=== PATIENT | male | born 1945 | race Caucasian/White ===

== ENCOUNTER 2016-12-08 08:30 | Day surgery (SDC) | payer MEDICARE, OTHER ==
[~2016-12-08] VITALS: Ht 185.4 cm; Wt 93.3 kg
--- NOTE | 2016-12-08 07:54 | PCM.HPANE ---
Patient Data Surgeon Admitting Provider: Attending Provider:Ilda Leiva MD Primary Care Physician:Ilir Campbell MD Other Provider:Tere Nunezingham Anesthesia Reason for Visit Left Ureteral Stone Ht/WT & BMI Height (Feet): 6 Height (Inches): 1 Weight (Kilograms): 93.07 Body Mass Index 27.00 Allergies Coded Allergies: lisinopril (Verified Allergy, Unknown, 12/05/16) Past Anesthesia History Anesthesia History: Denies:: Abnormal Airway, Anesthesia Reactions, Difficult Intubation, Malignant Hyperthermia Diabetes History Hx Diabetes?: Yes Type of Diabetes: Type II Glycemic Control: Oral Medication MRSA MRSA: No Medications Blood Thinner: Aspirin Hypertension Medication: Yes Home Meds Incl Beta Mindi: Yes Reported Medications Acetaminophen 325 Mg [id number] Mg PO Q4H PRN For Fever Ref 0 11/10/16 Krill Oil 500 Mg Gdphxsv429 Mg PO DAILY 11/10/16 Sertraline HCl (Zoloft)50 Mg Knjfyd031 Mg PO DAILY 30 Days Ref 0 11/09/16 Finasteride (Proscar)5 Mg Tablet5 Mg PO DAILY 30 Days 11/09/16 Nystatin/Triamcin (Nystatin-Triamcinolone Cream)15 Gm Cream..g.15 Gm TP BID 11/09/16 Metformin 500 Mg [id number] Mg PO BID Ref 0 11/09/16 Atorvastatin (Lipitor)40 Mg Beyynz10 Mg PO DAILY Ref 0 11/09/16 Sitagliptin/Metformin 50-500 mg (Janumet 50-500 mg)1 Each Tablet1 Tablet PO DAILY 11/09/16 Hydrochlorothiazide 25 Mg Wxresa41 Mg PO DAILY 30 Days Ref 0 11/09/16 Tamsulosin (Flomax)0.4 Mg Capsule0.4 Mg PO DAILY Ref 0 11/09/16 Butalbital/Aspirin/Caff 50-325-40 mg (Fiorinal 50-325-40 mg)1 Each Capsule1 Capsule PO Q4H PRN For Headache Ref 0 11/09/16 Felodipine ER 10 Mg Tab.er.24h10 Mg PO DAILY Ref 0 11/09/16 Losartan Potassium (Cozaar)100 Mg Ymzpcm54 Mg PO DAILY 11/09/16 Cinnamon Bark (Cinnamon)500 Mg Capsule1,000 Mg PO DAILY 11/09/16 Aspirin 81 Mg Vphfyf01 Mg PO BID Ref 0 11/09/16 History History of ENT Problems?: No HEENT History: Denies:: Abnormal Airway Difficult Intubation Hx of Heart Problems?: Yes Cardiovascular History: Positive for:: Hypertension Denies:: AICD Atrial Fibrillation Chest Pain Heart Murmur Irregular Heartbeat Pacemaker Hx of Respiratory Problem?: No Respiratory History: Denies:: Dyspnea (HX OF ASBESTOS EXPOSURE) Oxygen Administration Pneumonia Tuberculosis Use of C-PAP Machine Use of Inhalers / NEBS Hx Neurologic Problems?: Yes Neurological History: Positive for:: Headaches Denies:: CVA Dementia Multiple Sclerosis Parkinson's Disease Seizures Hx of GI Problems?: Yes Gastrointestinal History: Positive for:: Gastroesphageal Reflux Heartburn Denies:: Rectal Bleeding Hx of Problems?: Yes Genitourinary History: Positive for:: Kidney Stones (left stone current admission problem) Other Pertinent History: past hx of stones- recently seen here 10/2016 for left stone Male Hx: Denies:: Prostate Problems Scrotal Mass Testicular Surgery Skin History: Positive for:: History 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) Denies:: Pressure Ulcers Hx Musculoskeletal Problems?: No Musculoskeletal History: Denies:: Fibromyalgia Joint Replacement Musculoskeletal Trauma Myasthenia Gravis Osteoarthritis Hx of Psycho/Social Problems?: No Hx Surgeries?: Yes (ESWL, lithotripsy) Hx Any Other Health Problems?: Yes Other History: Denies:: Cancer Endocrine Disease Hospitalization Thyroid Disease History Blood Transfusions: Denies:: Blood Transfusions Hx Diabetes: Yes Smoking Status: Never Smoker Have You Smoked inLast 12 mo: No Stop/Bang S-Snoring: Do You Snore Loudly: Yes T-Tired: feel tired, fatigued: Yes O-Obsered: Observed not breath: No P-Blood Pressure: treated: Yes B- Body Mass Index > 35 kg/m2: No A- Age over 50: Yes N- Neck Large Circumference: No G- Gender Male: Yes COLIN Total Score: 5 COLIN Risk Assessment: High Risk, =/>3 Yes COLIN Category 4 OutPt Procedure: Yes Risk Assessment Category Category 1A: Patient has history of documented sleep apnea, and HAS NOT received any narcotic, sedative or anesthesia administration during this stay. Category 1B: Patient has history of documented sleep apnea, and HAS received any narcotic , sedative or anesthesia administration during this stay Category 2: Patient has SUSPECTED Obstructive Sleep Apnea, and HAS received any narcotic , sedative or anesthesia administration during this stay. Category 3: Patient has SUSPECTED Obstructive Sleep Apnea and HAS NOT received narcotic, sedative or anesthesia administration during this stay. Category 4: Outpatient in Procedural Areas with known sleep apnea or who screen positive for High Risk via the STOP/BANG questionnaire. Exam Exam General Appearance: Alert, Oriented X3, Cooperative, No Acute Distress HEENT/AIRWAY: MP 2 Lungs: Clear to Auscultation, Normal Air Movement Heart: Exam Unremarkable, Regular Rate/Rhythm, No Murmurs/Rubs/Gallops Plan Impression Patient chart reviewed, patient interviewed and anesthestic plan with risks, benefits, and alternatives discussed, and informed consent obtained. NPO Status: CAMMIEVERNON 11/09/16 0830 ASA Physical Status: ASA2 Mod Systemic Disease Anesthetic Plan: MAC Bene/Risks/Altern/Consents: Yes HP Complete Prior to Induction: Yes Familia Denton MD Dec 08, 2016 07:54
[~2016-12-08 08:30] MED LIST: ACET325T51 PO; ASPI-973 PO; BUTA1CAP16 PO; CINN500C14 PO; FELO10TA3 PO; FINA5TAB2 PO; HYDR25TA4 PO; KRIL500C PO; LIP40 PO; LOSA100T3 PO; Levofloxacin 500 mg/100 mL D5W IV ONE; METF500T4 PO; NYST15CR TP; SERT50TA PO; SITA1TAB2 PO; TAMS0.4C98 PO
[2016-12-08] MEDS ORDERED: EPHEDrine/NS 5 mg/mL 5 mL Syringe ONE (08:31)
[2016-12-08] MEDS ORDERED: Ondansetron 2 mg/mL 2 mL Inj ONE (08:31)
[2016-12-08] MEDS ORDERED: Dexamethasone 4 mg/mL Inj ONE (08:31)
[2016-12-08] MEDS ORDERED: Ketamine 10 mg/mL 20 mL Inj ONE (08:31)
[2016-12-08] MEDS: Lactated Ringer's 1,000 ML IV SCH ×4 (08:46→12:56)
[2016-12-08 08:51] VITALS: BP 127/54; PULSE 71; RESP 18; O2SAT 97
[2016-12-08] MEDS ORDERED: Belladonna Alk-Opium 60 mg Rectal Suppository RECTAL ONE (11:23)
[2016-12-08] MEDS ORDERED: Lactated Ringer's 1,000 ML IV SCH (11:28)
[2016-12-08] MEDS ORDERED: Lactated Ringer's 500 ML IV PRN (11:28)
[2016-12-08] MEDS ORDERED: Dexamethasone 4 mg/mL Inj IVPUSH PRN (11:30)
[2016-12-08] MEDS ORDERED: EPHEDrine Sulfate 50 mg/mL Inj IVPUSH PRN (11:30)
[2016-12-08] MEDS ORDERED: HYDROmorphone 1 mg/mL Inj IVPUSH PRN (11:30)
[2016-12-08] MEDS ORDERED: MetoCLOpramide 5 mg/mL 2 mL Inj IVPUSH PRN (11:30)
[2016-12-08] MEDS ORDERED: fentaNYL-PF 50 mCg/mL 2 mL Inj IVPUSH PRN (11:30)
[2016-12-08] MEDS ORDERED: Ondansetron 2 mg/mL 2 mL Inj IVPUSH PRN (11:30)
[2016-12-08] MEDS ORDERED: Phenylephrine 10,000 mCg/mL Inj IVPUSH PRN (11:30)
[2016-12-08 11:40] VITALS: BP 100/53; PULSE 61; RESP 12; O2SAT 93
[2016-12-08 11:45] VITALS: BP 111/57; PULSE 63; RESP 14; O2SAT 100
[2016-12-08] MEDS ORDERED: HYDROcodone-APAP 5-325 mg Tablet PO PRN (11:45)
[2016-12-08] MEDS ORDERED: Phenazopyridine 97.5 mg Tablet PO PRN (11:45)
[2016-12-08] MEDS ORDERED: Ondansetron 8 mg ODT Tablet PO PRN (11:45)
[2016-12-08 11:50] VITALS: BP 120/64; PULSE 80; RESP 14; O2SAT 97
[2016-12-08 12:15] VITALS: BP 119/59; PULSE 64; RESP 16; O2SAT 98
--- NOTE | 2016-12-08 12:35 | PCM.ANEP1 ---
Post Anesthesia Phase 1 PACU Phase 1 Assessment Vital Signs Vital Signs Date Time Temp Pulse Resp B/P Pulse Ox O2 Delivery O2 Flow Rate FiO2 12/08/16 12:15 64 16 119/59 98 Room Air 12/08/16 11:50 80 14 120/64 97 Room Air 12/08/16 11:45 63 14 111/57 100 Simple Mask 8 12/08/16 11:40 36.4 61 12 100/53 93 Simple Mask 8 12/08/16 08:51 35.9 71 18 127/54 97 Room Air Anesthetic Administered: GA Level of Alertness: Sleepy, easy to arouse SIMS's with Equal Strength: Yes Pain: No Nausea or Vomiting: No Airway Device: LMA Oxygen Delivery: Simple Mask Lungs: Clear to Auscultation, Normal Air Movement Dermatome Level: Full Sensation Familia Denton MD Dec 08, 2016 12:34
--- NOTE | 2016-12-08 12:35 | PCM.ANEP2 ---
Post Anesthesia Evaluation ASA/CMS Post Anesthesia VS in Patient's Normal Range?: Yes Resp Stable; Airway Patent?: Yes CV Function & Hydration Stable: Yes Mental Status Recovered?: Yes Pain control Satisfactory?: Yes N/V Control Satisfactory?: Yes Familia Denton MD Dec 08, 2016 12:35
--- NOTE | 2016-12-08 12:35 | PCM.HPANE ---
Patient Data Surgeon Admitting Provider: Attending Provider:Ilda Leiva MD Primary Care Physician:Roe Aleman MD Other Provider:Tere Nunezingham Anesthesia Reason for Visit Left Ureteral Stone Ht/WT & BMI Height (Feet): 6 Height (Inches): 1 Weight (Kilograms): 93.3 Body Mass Index 27.00 Allergies Coded Allergies: lisinopril (Verified Allergy, Unknown, 12/05/16) Past Anesthesia History Anesthesia History: Denies:: Abnormal Airway, Anesthesia Reactions, Difficult Intubation, Malignant Hyperthermia Diabetes History Hx Diabetes?: Yes Type of Diabetes: Type II Glycemic Control: Oral Medication Current Bedside Blood Glucose: 126 MRSA MRSA: No Medications Blood Thinner: Aspirin Hypertension Medication: Yes Home Meds Incl Beta Mindi: No Reported Medications Acetaminophen 325 Mg Cglrjm328 Mg PO Q4H PRN For Fever Ref 0 11/10/16 Krill Oil 500 Mg Vglxdjk746 Mg PO DAILY 11/10/16 Sertraline HCl (Zoloft)50 Mg Ndioxm062 Mg PO DAILY 30 Days Ref 0 11/09/16 Finasteride (Proscar)5 Mg Tablet5 Mg PO DAILY 30 Days 11/09/16 Nystatin/Triamcin (Nystatin-Triamcinolone Cream)15 Gm Cream..g.15 Gm TP BID 11/09/16 Metformin 500 Mg Mekaut680 Mg PO BID Ref 0 11/09/16 Atorvastatin (Lipitor)40 Mg Ilmtgb93 Mg PO DAILY Ref 0 11/09/16 Sitagliptin/Metformin 50-500 mg (Janumet 50-500 mg)1 Each Tablet1 Tablet PO DAILY 11/09/16 Hydrochlorothiazide 25 Mg Hxmuwv34 Mg PO DAILY 30 Days Ref 0 11/09/16 Tamsulosin (Flomax)0.4 Mg Capsule0.4 Mg PO DAILY Ref 0 11/09/16 Butalbital/Aspirin/Caff 50-325-40 mg (Fiorinal 50-325-40 mg)1 Each Capsule1 Capsule PO Q4H PRN For Headache Ref 0 11/09/16 Felodipine ER 10 Mg Tab.er.24h10 Mg PO DAILY Ref 0 11/09/16 Losartan Potassium (Cozaar)100 Mg Kmykyn37 Mg PO DAILY 11/09/16 Cinnamon Bark (Cinnamon)500 Mg Capsule1,000 Mg PO DAILY 11/09/16 Aspirin 81 Mg Nawmnh04 Mg PO BID Ref 0 11/09/16 History History of ENT Problems?: No HEENT History: Denies:: Abnormal Airway Difficult Intubation Hx of Heart Problems?: Yes Cardiovascular History: Positive for:: Hypertension Denies:: AICD Atrial Fibrillation Chest Pain Heart Murmur Irregular Heartbeat Pacemaker Hx of Respiratory Problem?: No Respiratory History: Denies:: Dyspnea (HX OF ASBESTOS EXPOSURE) Oxygen Administration Pneumonia Tuberculosis Use of C-PAP Machine Use of Inhalers / NEBS Hx Neurologic Problems?: Yes Neurological History: Positive for:: Headaches Denies:: CVA Dementia Multiple Sclerosis Parkinson's Disease Seizures Hx of GI Problems?: Yes Gastrointestinal History: Positive for:: Gastroesphageal Reflux Heartburn Denies:: Rectal Bleeding Hx of Problems?: Yes Genitourinary History: Positive for:: Kidney Stones (left stone current admission problem) Other Pertinent History: past hx of stones- recently seen here 10/2016 for left stone Male Hx: Denies:: Prostate Problems Scrotal Mass Testicular Surgery Skin History: Positive for:: History 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) Denies:: Pressure Ulcers Hx Musculoskeletal Problems?: No Musculoskeletal History: Denies:: Fibromyalgia Joint Replacement Musculoskeletal Trauma Myasthenia Gravis Osteoarthritis Hx of Psycho/Social Problems?: No Hx Surgeries?: Yes (ESWL, lithotripsy) Hx Any Other Health Problems?: Yes Other History: Denies:: Cancer Endocrine Disease Hospitalization Thyroid Disease History Blood Transfusions: Denies:: Blood Transfusions Hx Diabetes: YesBedside Blood Glucose: 126 Smoking Status: Never Smoker Have You Smoked inLast 12 mo: No Stop/Bang S-Snoring: Do You Snore Loudly: Yes T-Tired: feel tired, fatigued: Yes O-Obsered: Observed not breath: No P-Blood Pressure: treated: Yes B- Body Mass Index > 35 kg/m2: No A- Age over 50: Yes N- Neck Large Circumference: No G- Gender Male: Yes COLIN Total Score: 5 COLIN Risk Assessment: High Risk, =/>3 Yes COLIN Category 4 OutPt Procedure: Yes Risk Assessment Category Category 1A: Patient has history of documented sleep apnea, and HAS NOT received any narcotic, sedative or anesthesia administration during this stay. Category 1B: Patient has history of documented sleep apnea, and HAS received any narcotic , sedative or anesthesia administration during this stay Category 2: Patient has SUSPECTED Obstructive Sleep Apnea, and HAS received any narcotic , sedative or anesthesia administration during this stay. Category 3: Patient has SUSPECTED Obstructive Sleep Apnea and HAS NOT received narcotic, sedative or anesthesia administration during this stay. Category 4: Outpatient in Procedural Areas with known sleep apnea or who screen positive for High Risk via the STOP/BANG questionnaire. High Risk, =/>3 Yes Exam Exam Vital Signs Vital Signs Date Time Temp Pulse Resp B/P Pulse Ox O2 Delivery O2 Flow Rate FiO2 12/08/16 12:15 64 16 119/59 98 Room Air 12/08/16 11:50 80 14 120/64 97 Room Air 12/08/16 11:45 63 14 111/57 100 Simple Mask 8 12/08/16 11:40 36.4 61 12 100/53 93 Simple Mask 8 12/08/16 08:51 35.9 71 18 127/54 97 Room Air Meds/Labs/Diagnostics Admission Meds Current Medications Levofloxacin/ Dextrose 500 mg/ Premix 100 ml @ 100 mls/hr PREOP ONCE IV Last administered on 12/08/16 10:33; Start 12/08/16 at 06:00; Stop 12/08/16 at 06:59 ; Status DC Lactated Ringer's (Lr) 1,000 ml @ 120 mls/hr Q8H20M IV Last administered on 11:34; Start 12/08/16 at 05:00; Stop 12/08/16 at 13:19 Belladonna Alkaloids/Opium (B & O Rectal Suppository) 60 mg STK-MED ONCE RECTAL Last administered on 12/08/16 11:25; Start 12/08/16 at 11:23; Stop 12/08/16 at 11:24; Status DC Bedside Blood Glucose: 126 Plan Impression Patient chart reviewed, patient interviewed and anesthestic plan with risks, benefits, and alternatives discussed, and informed consent obtained. NPO Status: 12/07/16 Familia Denton MD Dec 08, 2016 12:35
[2016-12-08 12:55] VITALS: BP 121/59; PULSE 74; RESP 18; O2SAT 98
--- NOTE | 2016-12-08 13:25 | DRSVH ---
PROCEDURE: X-RAY RETROGRADE UROGRAPHY INDICATIONS: STONES TECHNIQUE: 4 spot intra-operative images acquired by the Urology service. COMPARISON: [facility], CR, XR RETROGRADE UROGRAPHY, 11/10/2016, 13:47. FINDINGS: 4 spot fluoroscopic intraoperative images demonstrating placement of left renal stent Dictated by: Vincenzo San M.D. on 12/08/2016 at 13:24 Approved by: Vincenzo San M.D. on 12/08/2016 at 13:24
--- NOTE | 2016-12-09 06:12 | OP ---
[address] [address] OPERATIVE REPORT PATIENT: EFRAIN HARDEN : 1945 MR#: [id number] ADMIT: 12/08/2016 JOB ID: [id number] DATE OF SURGERY: 12/08/2016 PROCEDURE NAME: 1. Left ureteroscopy. 2. Laser lithotripsy. 3. Basket stone extraction. 4. Double-J stent removal and replacement. SURGEON: Ilda Leiva MD. ANESTHESIA: General. PREOPERATIVE DIAGNOSIS(ES): 1. Indwelling left ureteral stent. 2. Impacted left ureteral stone. POSTOPERATIVE DIAGNOSIS(ES): 1. Indwelling left ureteral stent. 2. Impacted left ureteral stone. INDICATIONS: The patient is a 71-year-old gentleman with a history of nephrolithiasis presenting with an impacted left ureteral stone, initially coming in for left ureteroscopy, laser lithotripsy, double-J stent placement on November 10, 2016. We were able to at that time get a rigid scope up to the level of the stone. However, the stone was only partially able to be treated, given the extensive edema and impaction in the area. We thus elected to place a stent and return to safely conclude the procedure ideally. So, he was brought back on December 08, 2016, to attempt to completely remove the stone after a period of decompression and passive dilation with double-J stent. PROCEDURE IN DETAIL: After appropriate informed consent was obtained, the patient was brought to the operating room. He received IV antibiotic, Levaquin, prior to onset of the procedure. SCDs were placed. Adequate general anesthesia induced. He was carefully placed in dorsal lithotomy position. All pressure points carefully padded. Cleaned, prepped, and draped in the usual sterile fashion. Rigid scope was introduced into the patient's bladder. The end of the left-sided double-J stent was visible with some very light encrustation on it. This was grasped and brought to the patient's meatus. A hydrophilic tipped wire was advanced through the double-J stent under fluoroscopic guidance into good position in the patient's kidney. The stent itself was then pulled down over the wire, and the wire was left in place throughout the course of the case as a safety wire. We then drained the patient's bladder with the cystoscope and introduced the semi-rigid ureteroscope, which was maneuvered with ease into the left ureteral orifice. We were able to get back up to the location of the stone. There was still some edema there, however, with the passive dilation of the stenting this made treatment of the stone much more readily possible but still with some difficulty. However, we were able to get the fiber on the stone and break it up into small enough pieces. It ultimately broke free. We were able to treat them into fragments of either dusted or 1-2 mm. Larger fragments were removed. One was handed off for stone analysis. The remainder allowed to come out into the patient's bladder. The ureter itself was cleared. Given that there was still some bullous edema at the level of the prior stone impaction, we elected to go ahead and replace the double-J stent. Thus, the safety wire was backloaded through the 22-Lao scope, and we advanced a 24 cm 6-Lao double-J stent over the wire through the scope into good position with a curl in the renal pelvis fluoroscopically and a curl in the patient's bladder. The string was left long outside of the patient in anticipation of removable the next week. The patient tolerated the procedure very well, was awakened and taken in stable condition to the postanesthesia care unit.
[2016-12-15 13:09] LABS: Stone Color Brown (.)
== END 2016-12-08 23:59 | disposition home or self-care (01) ==
LOC: SAS 08:30
PROVIDERS: ATTEND Urology
DX: N20.1 Calculus of ureter (principal); E11.9 Type 2 diabetes mellitus without complications; I10 Essential (primary) hypertension; R51 Headache; K21.9 Gastro-esophageal reflux disease without esophagitis; R12 Heartburn; Z79.82 Long term (current) use of aspirin; Z79.899 Other long term (current) drug therapy